=== PATIENT | female | born 2000 | race Caucasian/White ===

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

== ENCOUNTER → 2018-03-24 | Outpatient (REF) | payer OTHER, MEDICAID, BC | LOC: M SFHCCLAY 13:04 | DX: J35.1 Hypertrophy of tonsils (principal) ==

== ENCOUNTER 2018-03-27 23:05 | Emergency (ER) | payer OTHER, MEDICAID ==
[2018-03-28] MEDS: GI COCKTAIL 50ML BTL(HYOSCYAMINE/MAALOX/LIDOCAINE VISCOUS)(1:3:1) PO (00:26)
[2018-03-28] MEDS: NS 1,000 ML IV (00:26)
[2018-03-28 00:46] LABS: HEMATOCRIT 42.1 % (36.0-47.0); HEMOGLOBIN 14.3 g/dl (12.0-15.5); MEAN CORPUSCULAR VOLUME 94.2 fl (80.0-96.0); PLATELET COUNT, AUTOMATED 274 10^3/uL (150-450); RED BLOOD COUNT 4.47 10^6/uL (4.00-5.40); RED CELL DISTRIBUTION WIDTH 12.2 % (11.5-14.5); WHITE BLOOD COUNT 14.6 10^3/uL (4.0-10.0)
[2018-03-28 00:48] LABS: CONTROL LINE MONO INT CTR LINE PRESENT; MONO SCRN NEGATIVE (NEGATIVE)
[2018-03-28 00:52] LABS: ANION GAP 5 MEQ/L (8-16); BLOOD UREA NITROGEN 12 MG/DL (7-18); CALCIUM LEVEL 8.8 MG/DL (8.5-10.1); CARBON DIOXIDE LEVEL 27 MEQ/L (21-32); CHLORIDE LEVEL 108 MEQ/L (98-107); CREATININE FOR GFR 0.82 MG/DL (0.55-1.30); GLUCOSE, FASTING 106 MG/DL (70-100); POTASSIUM SERUM 3.8 MEQ/L (3.5-5.1); SODIUM LEVEL 140 MEQ/L (136-145)
[2018-03-28] MEDS: IBUPROFEN 800 MG TAB PO (01:33)
== END 2018-03-28 01:45 | disposition home or self-care (01) ==
LOC: M ED 23:05
DX: H65.193 Other acute nonsuppurative otitis media, bilateral (principal); H69.90 Unspecified Eustachian tube disorder, unspecified ear; F33.9 Major depressive disorder, recurrent, unspecified; F41.9 Anxiety disorder, unspecified; Z87.09 Personal history of other diseases of the respiratory system
CPT/HCPCS: 70360

== ENCOUNTER 2018-10-01 20:03 | Emergency (ER) | payer OTHER, MEDICAID ==
[2018-10-01 20:03] VITALS: BP 136/97
[~2018-10-01 20:03] MED LIST changes: +ACET-683 PO; +KEFL500C17 PO; +MEDR4PAK PO; +MOBI4TAB PO; +REGL10TA6 PO; +ZANA4TAB PO
[2018-10-01] MEDS ORDERED: NORCOTAB PO (20:25)
[2018-10-01] MEDS ORDERED: BACT800T5 PO (20:25)
[2018-10-01] MEDS: NORCO, ANEXSIA 5/325MG TABLET (HYDROcodone/ACETAMINOPHEN) PO ONE (20:26)
[2018-10-01] MEDS: BACTRIM 160MG/800MG DS TAB PO ONE (20:26)
[2018-10-01] MEDS: NORCO 5/325MG TABLET (BULK FOR ED) PO ONE (20:39)
== END 2018-10-01 20:43 | disposition home or self-care (01) ==
LOC: M ED 20:03
DX: K61.0 Anal abscess (principal); L03.315 Cellulitis of perineum

== ENCOUNTER 2019-01-04 16:36 | Emergency (ER) | payer OTHER, MEDICAID ==
[~2019-01-04 16:36] MED LIST changes: +BACT800T5 PO; +HYDR-3715 PO; +IBUP600T42 PO; -IBUP60TA PO; -NORCOTAB PO; -SENN1TAB2 PO; +SENN1TAB40 PO
--- NOTE | 2019-01-04 18:49 | REP ---
Clinical: Trauma. Technique: AP, lateral left ankle. Findings: Mild swelling. No acute fracture or dislocation identified. Ankle mortise intact. Impression: Mild swelling. No acute fracture or dislocation. Electronically Signed by Abel Altman MD 01/04/2019 06:41 P
[2019-01-04] MEDS ORDERED: QC A650T3 PO (19:29)
[2019-01-04 19:33] VITALS: BP 133/74
== END 2019-01-04 19:38 | disposition home or self-care (01) ==
LOC: M ED 16:36
DX: S93.402A Sprain of unspecified ligament of left ankle, initial encounter (principal); X50.1XXA Overexertion from prolonged static or awkward postures, initial encounter; Y92.098 Other place in other non-institutional residence as the place of occurrence of the external cause; Z32.01 Encounter for pregnancy test, result positive; F41.9 Anxiety disorder, unspecified

== ENCOUNTER 2019-02-15 15:10 | Emergency (ER) | payer MEDICAID, OTHER ==
[~2019-02-15] VITALS: Ht 172.7 cm; Wt 102.2 kg
[~2019-02-15 15:10] MED LIST changes: +QC A650T3 PO
[2019-02-15] MEDS ORDERED: UNIS25TA3 PO (15:19)
[2019-02-15] MEDS ORDERED: VITAMIN B6 (15:19)
[2019-02-15] MEDS ORDERED: METOCLOPRAMIDE INJ 10MG/2ML VIAL (J2765) IV ONE (16:30)
[2019-02-15] MEDS ORDERED: NS 1,000 ML IV ONE (16:30)
[2019-02-15 17:08] LABS: BLOOD UREA NITROGEN 8 MG/DL (7-18); CALCIUM LEVEL 9.2 MG/DL (8.5-10.1); CARBON DIOXIDE LEVEL 23 MEQ/L (21-32); CHLORIDE LEVEL 106 MEQ/L (98-107); CREATININE FOR GFR 0.68 MG/DL (0.55-1.30); GLUCOSE, FASTING 90 MG/DL (70-100); POTASSIUM SERUM 3.8 MEQ/L (3.5-5.1); SODIUM LEVEL 137 MEQ/L (136-145)
[2019-02-15] MEDS ORDERED: ONDANSETRON 4MG/2ML VIAL (J2405) IV ONE (17:30)
[2019-02-15] MEDS ORDERED: ONDA4TAB6 PO (19:01)
[2019-02-15 19:06] VITALS: BP 121/75
== END 2019-02-15 19:08 | disposition home or self-care (01) ==
LOC: M ED 15:10
DX: O26.891 Other specified pregnancy related conditions, first trimester (principal); O21.9 Vomiting of pregnancy, unspecified; Z79.899 Other long term (current) drug therapy
CPT/HCPCS: 80048; 81001; 87086; 96361; 96374; 96375; 99284; J2405; J2765

== ENCOUNTER → 2019-03-29 | Outpatient (CLI) | payer MEDICAID, SELFPAY ==
[~2019-03-29] MED LIST changes: +ONDA4TAB6 PO; +UNIS25TA3 PO; +VITAMIN B6
[2019-03-29 12:16] LABS: BASO % 0.2 % (0.0-1.0); EOS # 0.1 10^3/uL (0.0-0.50); EOS % 0.6 % (0.0-3.0); HEMATOCRIT 37.6 % (36.0-47.0); HEMOGLOBIN 12.9 g/dl (12.0-15.5); LYMPH # 1.3 10^3/uL (1.5-6.5); LYMPH % 15.1 % (24.0-44.0); MEAN CORPUSCULAR HEMOGLOBIN 31.6 pg (27.0-33.0); MEAN CORPUSCULAR HGB CONC 34.3 g/dl (32.0-36.5); MEAN CORPUSCULAR VOLUME 92.2 fl (80.0-96.0); MONO # 0.6 10^3/uL (0.0-0.8); MONO % 6.6 % (0.0-5.0); NEUTROPHILS # 6.7 10^3/uL (1.8-7.7); PLATELET COUNT, AUTOMATED 219 10^3/uL (150-450); RED BLOOD COUNT 4.08 10^6/uL (4.00-5.40); WHITE BLOOD COUNT 8.7 10^3/uL (4.0-10.0)
[2019-03-29 12:46] LABS: ALT/SGPT 11 U/L (12-78); BILIRUBIN,TOTAL 0.1 MG/DL (0.2-1.0); CREATININE FOR GFR 0.45 MG/DL (0.55-1.30); GLUCOSE CHALLENGE TEST 1 HOUR 75 MG/DL (LESS THAN 140); LDH LACTATE DEHYDROGENASE 139 U/L (84-246); URIC ACID 3.9 MG/DL (2.6-6.0)
[2019-03-29 12:51] LABS: TOTAL PROTEIN,RANDOM URINE 19.4 MG/DL (0.0-12.0)
[2019-03-29 13:15] LABS: HEMOGLOBIN A1c 4.6 %
[2019-03-29 13:52] LABS: CHLAMYDIA DNA AMPLIFICATION NEGATIVE (NEGATIVE); GC DNA AMPLIFICATION NEGATIVE (NEGATIVE)
[2019-03-30 10:14] LABS: RUBELLA IgG QUALITATIVE IMMUNE (IMMUNE)
[2019-03-30 10:43] LABS: HEPATITIS C VIRUS ABY INDEX < 0.0 INDEX (<0.8); HIV 1&2 SCREEN CENTAUR NEGATIVE (NEGATIVE)
== END ==
LOC: M LAB 10:15
PROVIDERS: ATTEND Advanced Practice Midwife
DX: Z34.81 Encounter for supervision of other normal pregnancy, first trimester (principal); Z3A.00 Weeks of gestation of pregnancy not specified

== ENCOUNTER → 2019-04-13 | Outpatient (CLI) | payer MEDICAID ==
--- NOTE | 2019-04-13 14:26 | REP ---
Clinical: Anatomical evaluation. Comparison: None . Findings: Examination demonstrates a single live intrauterine in cephalic presentation. motion is identified by technologist. Placenta is noted posterior and low-lying and grade zero without evidence for placenta previa or abruption. Amniotic fluid volume is normal. Cervix measures 3.7 cm in length and appears closed. No evidence for nuchal cord. Gestational age by LMP 18 weeks 1 day with ELLYN 09/13/2019 . Gestational age by current measurements 19 weeks 2 days with ELLYN 09/05/2019 . FHR equals 136 beats per minute. BPD 4.5 cm 19 weeks 5 days HC 16.0 cm 18 weeks 6 days AC 14.3 cm 19 weeks 5 days FL 2.9 cm 18 weeks 5 days HL 2.9 cm 19 weeks 2 days HC/AC ratio 1.12 Estimated weight 280 grams ( 93rd percentile). Anatomical assessment demonstrates normal structures including cranium, choroid plexus, cavum, cerebellum/posterior fossa, facial features, diaphragm, stomach, cord insertion/three-vessel cord, kidneys/bladder, spine, and extremities. Limited evaluation of the lungs and heart/ventricular outflow tracts noted. Impression: 1. Single live intrauterine in cephalic presentation demonstrating appropriate interval growth. 2. Anatomical limitations as noted above may warrant reevaluation and follow-up. Electronically Signed by Abel Altman MD 04/13/2019 02:19 P
== END ==
LOC: M RAD 12:57
PROVIDERS: ATTEND Advanced Practice Midwife
DX: Z34.82 Encounter for supervision of other normal pregnancy, second trimester (principal); Z36.89 Encounter for other specified antenatal screening; Z3A.18 18 weeks gestation of pregnancy

== ENCOUNTER → 2019-05-17 | Outpatient (CLI) | payer MEDICAID ==
[~2019-05-17] MED LIST changes: +SENN-53 PO; -SENN1TAB40 PO
--- NOTE | 2019-05-17 19:03 | REP ---
Obstetric ultrasound for anatomy follow-up: On the prior study of 04/13/2019 the lungs, four-chamber view of the heart and right and left cardiac ventricular outflow tracts could not be optimally demonstrated. The study dated fundus for follow-up of these anatomic structures. On the study today the lungs, four-chamber view of the heart and the cardiac right and left ventricular outflow tracts are satisfactorily demonstrated and are unremarkable. The remainder of the anatomy is unremarkable as previously. There is a single intrauterine gestation in a vertex presentation. There is movement and cardiac activity. The heart rate is 142 beats per minute. The placenta is posterior and is grade zero. The amniotic fluid volume subjectively is normal. The cervix measures through 0.8 cm length. Gestational age by today's ultrasound is 23 weeks 2 days/ELLYN 09/11/2019. Gestational age by the first ultrasound is 24 weeks 1 day/ELLYN 09/05/2019. Gestational age by LMP is 21 weeks 0 days/ELLYN 09/13/2019. The weight is 556 grams/1 pound. This is the 46th percentile for 23 weeks 0 days. Electronically Signed by Manish Reyes MD 05/17/2019 06:54 P
== END ==
LOC: M RAD 16:55
PROVIDERS: ATTEND Advanced Practice Midwife
DX: O99.212 Obesity complicating pregnancy, second trimester (principal); E66.9 Obesity, unspecified; Z3A.23 23 weeks gestation of pregnancy

== ENCOUNTER → 2019-06-27 | Outpatient (CLI) | payer OTHER ==
[~2019-06-27] MED LIST changes: +PRENTAB29
[2019-06-27 13:28] LABS: HEMATOCRIT 40.2 % (36.0-47.0); HEMOGLOBIN 13.2 g/dl (12.0-15.5); MEAN CORPUSCULAR HEMOGLOBIN 31.1 pg (27.0-33.0); MEAN CORPUSCULAR HGB CONC 32.8 g/dl (32.0-36.5); MEAN CORPUSCULAR VOLUME 94.8 fl (80.0-96.0); PLATELET COUNT, AUTOMATED 218 10^3/uL (150-450); RED BLOOD COUNT 4.24 10^6/uL (4.00-5.40); WHITE BLOOD COUNT 8.8 10^3/uL (4.0-10.0)
== END ==
LOC: M LAB 11:50
PROVIDERS: ATTEND Advanced Practice Midwife
DX: O99.212 Obesity complicating pregnancy, second trimester (principal); Z3A.00 Weeks of gestation of pregnancy not specified

== ENCOUNTER → 2019-06-29 | Outpatient (REF) | payer OTHER ==
[2019-06-29 21:42] LABS: APPEARANCE, URINE HAZY (CLEAR); BACTERIA, URINE AUTO NEGATIVE (NEGATIVE); BILIRUBIN, URINE AUTO NEGATIVE (NEGATIVE); BLOOD, URINE BLOOD NEGATIVE (NEGATIVE); CALCIUM OXALATE CRYSTALS LARGE; COLOR, URINE YELLOW (YELLOW); GLUCOSE, URINE (UA) AUTO NEGATIVE (NEGATIVE); KETONE, URINE AUTO NEGATIVE (NEGATIVE); LEUKOCYTE ESTERASE, URINE AUTO TRACE (NEGATIVE); MUCUS, URINE SMALL (NEGATIVE); NITRITE, URINE AUTO NEGATIVE (NEGATIVE); PROTEIN, URINE AUTO NEGATIVE (NEGATIVE); RBC, URINE AUTO 2 /HPF (0-3); SPECIFIC GRAVITY URINE AUTO 1.018 (1.002-1.035); SQUAMOUS EPITHELIAL CELL UR AU 5 /HPF (0-6); UROBILINOGEN, URINE AUTO 0.2 mg/dL (0.0-2.0); WBC, URINE AUTO 13 /HPF (0-3)
== END ==
LOC: M LAB REF 10:20
PROVIDERS: ATTEND Physician Assistant
DX: N39.0 Urinary tract infection, site not specified (principal)

== ENCOUNTER 2019-07-17 12:13 | Outpatient (CLI) | payer OTHER ==
[~2019-07-17] VITALS: Ht 170.2 cm; Wt 115.6 kg
[2019-07-17 12:41] VITALS: BP 124/79
[2019-07-17 13:58] VITALS: BP 134/72
--- NOTE | 2019-07-17 15:07 | REP ---
OBSTETRIC SONOGRAPHY: HISTORY: Evaluate low-lying placenta. Comparison study May 17 2019. This demonstrated low-lying posterior placenta terminating 8 mm from the internal cervical os. TODAY'S SONOGRAPHIC FINDINGS: Scanning again demonstrates a living single intrauterine gestation in a cephalic lie. motion is observed and heart rate is recorded at 150 beats per minute. A posterior grade 2-3 placenta is seen. On transvaginal imaging, the inferior placental tip is 2.8 cm from the internal cervical os. Closed cervical length measurement is 3.4 cm. No extrauterine abnormality is observed. There has been appropriate interval growth. No anomalies seen. The following anatomic structures are again identified and felt to be unremarkable: cranium, cavum, face and profile, lungs, four-chamber heart with left and right ventricular outflow tract views, diaphragm, left-sided stomach, three-vessel cord, kidneys and bladder. Biometry Chart: BPD 8.4 cm = 33 weeks 5 days HC 29.7 cm = 32 weeks 6 days AC 27.4 cm = 31 weeks 3 days FL 6.4 cm = 32 weeks 6 days HL 5.4 cm = 31 weeks, 3 days HC/AC ratio normal 1.09 Cephalic index normal 0.80 Estimated weight 1928 grams, 4 pounds 4 ounces, 54th percentile for 31 weeks 5 days. JOHN normal 14.5 cm. S/D ratio normal 2.65. IMPRESSION: Viable single intrauterine gestation at 32 weeks 3 days by today's composite sonographic criteria. Expected gestational age estimate based on prior sonography is 32 weeks 6 days. ELLYN by prior sonography September 05, 2019. A posterior placenta terminates 2.8 cm from the internal cervical os on transvaginal sonography today. Electronically Signed by Zach Colunga MD 07/17/2019 05:19 P
--- NOTE | 2019-07-19 07:32 | IPNPDOC ---
Obstetrical Progress Note Date of Service Jul 17, 2019 Subjective S:18yo at 31w5d present with vaginal spotting. She has a know low lying placenta. Reports active movement. No reg ctx or LOF. O: vss, AF cat 1 tracing, no ctx gen: well appearing abd: gravid, nttp TVUS: showing placenta 2.8cm from cervix A/P: 18yo with resolution of low-lying placenta reassuring status -home with PTL precautions and FKCs -f/u at OB Objective Vital Signs Date Time Temp Pulse Resp B/P (MAP) Pulse Ox O2 Delivery O2 Flow Rate FiO2 07/17/19 13:58 89 18 134/72 (92) 07/17/19 12:41 97.7 Assessment Heart Rate (FHR): 150 Variability: Moderate Accelerations: Positive Heart Rate Tracing: Category I Tocometer Contractions: No Sterile Vaginal Examination Postion/Presentation: Cephalic presentation Assessment and Plan Age: 18 : 2 Term: 1 Livin EGA at Admission: 31 Status: Reassuring Group B Streptococcus: Unknown DANIELITO KEARNS MD. Jul 19, 2019 07:32
== END 2019-07-17 15:05 | disposition home or self-care (01) ==
LOC: M LDO 12:13
PROVIDERS: ATTEND Obstetrics & Gynecology
DX: O26.853 Spotting complicating pregnancy, third trimester (principal); O44.43 Low lying placenta NOS or without hemorrhage, third trimester; Z3A.31 31 weeks gestation of pregnancy

== ENCOUNTER → 2019-08-15 | Outpatient (REF) | payer OTHER | LOC: M SFHCWAGY 17:30 | PROVIDERS: ATTEND Specialist | DX: Z34.83 Encounter for supervision of other normal pregnancy, third trimester (principal) ==

== ENCOUNTER 2019-09-04 23:24 | Inpatient (IN) | payer OTHER ==
[~2019-09-04] VITALS: Ht 170.2 cm; Wt 124.5 kg
[2019-09-05] VITALS (26 sets, daily range): BP systolic 109–142; BP diastolic 59–108
[2019-09-05] MEDS ORDERED: LACTATED RINGER'S 1000 ML IV STA (00:15)
[2019-09-05] MEDS ORDERED: PENICILLIN G POTASSIUM IV 5 MU in D5W MINI-BAG PLUS 100 ML IV STA (00:15)
[2019-09-05] MEDS ORDERED: LR 1,000 ML IV SCH ×2 (01:00→04:00)
[2019-09-05 01:01] LABS: HEMATOCRIT 41.7 % (36.0-47.0); HEMOGLOBIN 13.8 g/dl (12.0-15.5); MEAN CORPUSCULAR HEMOGLOBIN 30.6 pg (27.0-33.0); MEAN CORPUSCULAR HGB CONC 33.1 g/dl (32.0-36.5); MEAN CORPUSCULAR VOLUME 92.5 fl (80.0-96.0); PLATELET COUNT, AUTOMATED 231 10^3/uL (150-450); RED BLOOD COUNT 4.51 10^6/uL (4.00-5.40); WHITE BLOOD COUNT 12.9 10^3/uL (4.0-10.0)
[2019-09-05 01:31] LABS: TOTAL PROTEIN,RANDOM URINE 18.5 MG/DL (0.0-12.0)
[2019-09-05 01:32] LABS: ALT/SGPT 14 U/L (12-78); BILIRUBIN,TOTAL 0.2 MG/DL (0.2-1.0); CREATININE FOR GFR 0.65 MG/DL (0.55-1.30); GLOMERULAR FILTRATION RATE > 60.0 (>60); LDH LACTATE DEHYDROGENASE 181 U/L (84-246); URIC ACID 5.9 MG/DL (2.6-6.0)
[2019-09-05] MEDS ORDERED: FENTANYL 2MCG/ML ROPIVACAINE 0.2% IN 0.9% NACL 100ML IVBAG As Ordered ONE (01:35)
[2019-09-05] MEDS ORDERED: EPIDURAL/PCA KEYS XX PRN (01:45)
[2019-09-05] MEDS ORDERED: diphenhydrAMINE INJ 50MG/ML VIAL (J1200) IV PRN (01:45)
[2019-09-05] MEDS ORDERED: NALOXONE INJ 0.4 MG/1 ML VIAL (J2310) IV PRN (01:45)
[2019-09-05] MEDS ORDERED: LACTATED RINGER'S 1000 ML IV PRN (01:45)
[2019-09-05] MEDS ORDERED: ONDANSETRON 4MG/2ML VIAL (J2405) IV PRN ×2 (01:45→03:30)
[2019-09-05] MEDS ORDERED: EPIDURAL COMMENT XX SCH (01:45)
[2019-09-05] MEDS ORDERED: FENTANYL/ROPIVACAINE/NACL BAG 100 ML EPIDURAL SCH (01:45)
[2019-09-05] MEDS ORDERED: REFRIGERATOR IV KEYS XX PRN (01:45)
[2019-09-05] MEDS ORDERED: ePHEDrine SULFATE 25 MG/5 ML(5MG/ML) SYRINGE IV PRN (01:45)
[2019-09-05] MEDS ORDERED: OXYTOCIN 30 UNITS IN 0.9% NaCl 500ML IV BAG (J2590) As Ordered ONE (03:00)
[2019-09-05] MEDS ORDERED: ACETAMINOPHEN 500 MG TAB PO PRN (03:30)
[2019-09-05] MEDS ORDERED: PROMETHAZINE 25 MG TAB PO PRN (03:30)
[2019-09-05] MEDS ORDERED: IBUPROFEN 800 MG TAB PO PRN (03:30)
[2019-09-05] MEDS ORDERED: DIBUCAINE 1% OINTMENT 30GM TOP PRN (03:30)
[2019-09-05] MEDS ORDERED: DOCUSATE SODIUM 100 MG CAP PO PRN (03:30)
[2019-09-05] MEDS ORDERED: IBUPROFEN 600 MG TAB PO PRN (03:30)
[2019-09-05] MEDS ORDERED: ACETAMINOPHEN TAB 650MG DOSE (2X325MG) PO PRN (03:30)
[2019-09-05] MEDS ORDERED: MEASLES,MUMPS,RUBELLA VACCINE INJ (MMR-II) (90707) SC SCH (04:00)
[2019-09-05] MEDS ORDERED: RHOGAM 300 MCG (1500 IU) INJ (J2790) IM SCH (04:00)
[2019-09-05] MEDS ORDERED: OXYTOCIN DRIP 30 UNITS in IV 1 EA IV SCH (04:00)
[2019-09-05] MEDS ORDERED: PENICILLIN G POTASSIUM IV 2.5 MU in IV 1 EA IV SCH (05:00)
[2019-09-05] MEDS: SLF 3 ML SYR IV SCH ×2 (09:15→22:15)
[2019-09-05] MEDS: PRENATAL VITAMINS CHEWABLE TABLET PO SCH (09:42)
[2019-09-05] MEDS ORDERED: SLF 3 ML SYR IV PRN (10:00)
[2019-09-06 06:00] VITALS: BP 117/62
[2019-09-06] MEDS: SLF 3 ML SYR IV SCH ×3 (06:00→22:00)
[2019-09-06] MEDS: PRENATAL VITAMINS CHEWABLE TABLET PO SCH (09:12)
[2019-09-06 18:00] VITALS: BP 124/79
[2019-09-07 05:35] VITALS: BP 126/63
[2019-09-07] MEDS: SLF 3 ML SYR IV SCH (06:00)
[2019-09-07] MEDS ORDERED: IBUP-1022 PO (08:38)
[2019-09-07] MEDS ORDERED: ACET-683 PO (08:38)
== END 2019-09-07 12:10 | disposition home or self-care (01) | DRG 560 ==
LOC: M LDO 23:24 → M LDI 09-05 00:13 → M OBS 09-05 09:28
PROVIDERS: ADMIT Obstetrics & Gynecology; ATTEND Obstetrics & Gynecology
PROC: 10E0XZZ Delivery of Products of Conception, External Approach (ICD-10-PCS; principal; 2019-09-05)
DX: O99.824 Streptococcus B carrier state complicating childbirth (principal); Z3A.38 38 weeks gestation of pregnancy; Z37.0 Single live birth; O99.214 Obesity complicating childbirth; E66.9 Obesity, unspecified

== ENCOUNTER → 2020-05-27 | Outpatient (CLI) | payer OTHER ==
[~2020-05-27] MED LIST changes: +IBUP-1022 PO
--- NOTE | 2020-05-27 16:58 | REPVR ---
PROCEDURE INFORMATION: Exam: XR Right Wrist Exam date and time: 05/27/2020 4:35 PM Age: 19 years old Clinical indication: Pain; Wrist; Right; Additional info: S/P fall, R/O wrist FX, thumb FX TECHNIQUE: Imaging protocol: XR Right wrist. Views: 1 or 2 views. COMPARISON: No relevant prior studies available. FINDINGS: Bones/joints: Normal. Soft tissues: Normal. IMPRESSION: No acute findings. Electronically signed by: Jay Hou On 05/27/2020 16:58:20 PM
--- NOTE | 2020-05-27 16:59 | REPVR ---
PROCEDURE INFORMATION: Exam: XR Right Finger(s) Exam date and time: 05/27/2020 4:35 PM Age: 19 years old Clinical indication: Pain; Finger(s); Right; Additional info: S/P fall, R/O wrist FX, thumb FX TECHNIQUE: Imaging protocol: XR Right fingers. Views: Minimum 2 views. COMPARISON: No relevant prior studies available. FINDINGS: Bones/joints: Normal. Soft tissues: Normal. IMPRESSION: No acute findings. Electronically signed by: Jay Hou On 05/27/2020 16:59:37 PM
== END ==
LOC: M RAD 15:52
PROVIDERS: ATTEND Physician Assistant Medical
DX: S60.211A Contusion of right wrist, initial encounter (principal); S60.011A Contusion of right thumb without damage to nail, initial encounter; X58.XXXA Exposure to other specified factors, initial encounter; Y92.9 Unspecified place or not applicable

== ENCOUNTER → 2022-06-20 | Outpatient (REF) | payer OTHER | LOC: M LAB REF 21:19 | PROVIDERS: ATTEND Physician Assistant Medical | DX: J20.9 Acute bronchitis, unspecified (principal) ==

== ENCOUNTER 2022-08-04 12:09 | Emergency (ER) | payer OTHER ==
[~2022-08-04] VITALS: Ht 172.7 cm; Wt 109.1 kg
[2022-08-04 14:29] LABS: BASO % 0.2 % (0.0-1.0); EOS % 0.1 % (0.0-3.0); HEMATOCRIT 49.8 % (36.0-47.0); HEMOGLOBIN 16.9 g/dl (12.0-15.5); LYMPH # 0.8 10^3/uL (1.5-5.0); LYMPH % 4.7 % (24.0-44.0); MEAN CORPUSCULAR HGB CONC 33.9 g/dl (32.0-36.5); MEAN CORPUSCULAR VOLUME 91.4 fl (80.0-96.0); MONO # 0.9 10^3/uL (0.0-0.8); MONO % 5.2 % (2.0-8.0); NEUTROPHILS # 15.4 10^3/uL (1.5-8.5); NEUTROPHILS % 89.5 % (36.0-66.0); PLATELET COUNT, AUTOMATED 369 10^3/uL (150-450); RED BLOOD COUNT 5.45 10^6/uL (4.00-5.40); WHITE BLOOD COUNT 17.2 10^3/uL (4.0-10.0)
[2022-08-04] MEDS ORDERED: MORPHINE 4 MG/ML 1ML VIAL IV ONE (14:35)
[2022-08-04] MEDS ORDERED: ONDANSETRON 4MG 2ML VIAL IV ONE (14:35)
[2022-08-04 14:50] LABS: LIPASE 23 U/L (12-53)
[2022-08-04 14:51] LABS: BILIRUBIN,DIRECT 0.2 MG/DL (<0.4)
[2022-08-04 14:52] LABS: ALBUMIN 4.2 G/DL (3.2-5.2); ALKALINE PHOSPHATASE 94 U/L (46-116); ALT/SGPT 21 U/L (7.0-40); AST/SGOT 26 U/L (<34); BILIRUBIN,TOTAL 0.8 MG/DL (0.3-1.2); BLOOD UREA NITROGEN 23 MG/DL (9-23); CARBON DIOXIDE LEVEL 19 MMOL/L (20-31); CHLORIDE LEVEL 103 MMOL/L (98-107); CREATININE FOR GFR 1.07 MG/DL (0.55-1.30); GLOMERULAR FILTRATION RATE > 60.0 (>60); GLUCOSE, FASTING 104 MG/DL (60-100); POTASSIUM SERUM 4.4 MMOL/L (3.5-5.1); SODIUM LEVEL 136 MMOL/L (136-145); TOTAL PROTEIN 7.9 G/DL (5.7-8.2)
[2022-08-04] MEDS ORDERED: ISOVUE-370 76% 100ML VIAL As Ordered ONE (15:05)
[2022-08-04] MEDS ORDERED: NS 1,000 ML IV ONE (15:55)
[2022-08-04 17:01] VITALS: BP 121/72
[2022-08-04] MEDS ORDERED: ACETAMINOPHEN 500 MG TAB PO ONE (18:20)
[2022-08-04] MEDS ORDERED: CIPROFLOXACIN 500MG TABLET PO ONE (18:40)
[2022-08-04] MEDS ORDERED: CIPR-249 PO (18:54)
[2022-08-04] MEDS ORDERED: KETO10TAB PO (18:54)
== END 2022-08-04 19:07 | disposition home or self-care (01) ==
LOC: EDBD 12:09 → M ED 12:09
DX: N39.0 Urinary tract infection, site not specified (principal); N83.201 Unspecified ovarian cyst, right side; R11.2 Nausea with vomiting, unspecified; R19.7 Diarrhea, unspecified; I10 Essential (primary) hypertension; F32.A Depression, unspecified; F41.9 Anxiety disorder, unspecified; F17.210 Nicotine dependence, cigarettes, uncomplicated; E66.9 Obesity, unspecified; Z79.899 Other long term (current) drug therapy
CPT/HCPCS: 74177; 76830; 76856; 80048; 80076; 81000; 83690; 84702; 85025; 87086; 93976; 96361; 96374; 96375; 99284; J2270; J2405

== ENCOUNTER → 2022-08-23 | Outpatient (REF) | payer OTHER ==
[~2022-08-23] MED LIST changes: +CIPR-249 PO; +KETO10TAB PO
[2022-08-23 14:28] LABS: GC DNA AMPLIFICATION NEGATIVE (NEGATIVE)
== END ==
LOC: M PLALAB 08:12
PROVIDERS: ATTEND Obstetrics & Gynecology
DX: Z12.4 Encounter for screening for malignant neoplasm of cervix (principal); R10.2 Pelvic and perineal pain; R87.612 Low grade squamous intraepithelial lesion on cytologic smear of cervix (LGSIL)

== ENCOUNTER → 2022-10-08 | Outpatient (CLI) | payer OTHER ==
[~2022-10-08] MED LIST changes: +OXYC1TAB23 PO
== END ==
LOC: M LABSMTC 10:10
PROVIDERS: ATTEND Anesthesiology
DX: Z01.812 Encounter for preprocedural laboratory examination (principal)

== ENCOUNTER 2022-10-13 13:53 | Observation (INO) | payer OTHER ==
[2022-10-13] VITALS (8 sets, daily range): BP systolic 102–125; BP diastolic 54–74
[~2022-10-13] VITALS: Ht 172.7 cm; Wt 117.0 kg
[~2022-10-13 13:53] MED LIST changes: +BUPIVACAINE HCL 0.25% 10ML VIAL As Ordered ONE; +LR 1,000 ML IV SCH; -OXYC1TAB23 PO; +ceFAZolin SOD 2 GM in IV 1 EA IV ONE
[2022-10-13] MEDS ORDERED: LR 1,000 ML IV SCH ×2 (14:15→17:20)
[2022-10-13 14:27] LABS: HEMATOCRIT 44.4 % (36.0-47.0); MEAN CORPUSCULAR HEMOGLOBIN 31.6 pg (27.0-33.0); MEAN CORPUSCULAR HGB CONC 33.8 g/dl (32.0-36.5); MEAN CORPUSCULAR VOLUME 93.5 fl (80.0-96.0); PLATELET COUNT, AUTOMATED 265 10^3/uL (150-450); RED BLOOD COUNT 4.75 10^6/uL (4.00-5.40); WHITE BLOOD COUNT 8.9 10^3/uL (4.0-10.0)
[2022-10-13] MEDS ORDERED: METHYLENE BLUE 0.5% (5MG/ML) 10 ML AMP (PROVAYBLUE) As Ordered ONE (15:16)
[2022-10-13] MEDS ORDERED: fentaNYL 100 MCG/2 ML INJECTION As Ordered ONE ×2 (15:25→17:28)
[2022-10-13] MEDS ORDERED: KETOROLAC 60MG 2ML VIAL As Ordered ONE (15:25)
[2022-10-13] MEDS ORDERED: LIDOCAINE 2% 100MG/5ML SDV (FOR ANES.) As Ordered ONE (15:25)
[2022-10-13] MEDS ORDERED: HYDROmorphone HCL 2MG/ML 1ML VIAL As Ordered ONE (15:25)
[2022-10-13] MEDS ORDERED: MIDAZOLAM INJ 2MG/2ML VIAL As Ordered ONE (15:25)
[2022-10-13] MEDS ORDERED: ROCURONIUM BROMIDE 50MG/5ML VIAL As Ordered ONE (15:25)
[2022-10-13] MEDS ORDERED: ONDANSETRON 4MG 2ML VIAL As Ordered ONE (15:25)
[2022-10-13] MEDS ORDERED: propofoL 200 MG/20 ML VIAL As Ordered ONE (15:25)
[2022-10-13] MEDS ORDERED: ACETAMINOPHEN 1000MG 100ML IV BAG As Ordered ONE (15:26)
[2022-10-13] MEDS ORDERED: SUGAMMADEX SODIUM 500 MG/5 ML VIAL (BRIDION) As Ordered ONE (16:10)
[2022-10-13] MEDS ORDERED: ONDANSETRON 4MG 2ML VIAL IV PRN (17:20)
[2022-10-13] MEDS ORDERED: IBUP-1022 PO (17:22)
[2022-10-13] MEDS ORDERED: OXYC1TAB23 PO (17:23)
[2022-10-13] MEDS: fentaNYL 100 MCG/2 ML INJECTION IV PRN ×4 (17:30→17:46)
[2022-10-13] MEDS: oxyCODONE 5MG TAB PO PRN ×2 (17:46→18:18)
[2022-10-13] MEDS: HYDROMORPHONE HCL 0.5 MG/ 0.5 ML SYRINGE IV PRN ×2 (18:10→18:15)
[2022-10-13] MEDS: LR 1,000 ML IV SCH ×2 (18:46→21:59)
[2022-10-13] MEDS: PERCOCET 5MG/325MG TAB PO PRN ×2 (20:06→23:59)
[2022-10-14 02:00] VITALS: BP 101/55
[2022-10-14] MEDS: KETOROLAC 30 MG/ML 1ML VIAL IV PRN ×2 (03:28→09:47)
[2022-10-14] MEDS: PERCOCET 5MG/325MG TAB PO PRN ×3 (04:10→12:07)
[2022-10-14] MEDS: LR 1,000 ML IV SCH (05:55)
[2022-10-14 06:00] VITALS: BP 115/63
[2022-10-14 10:00] VITALS: BP 110/65
== END 2022-10-14 14:00 | disposition home or self-care (01) ==
LOC: M SDC 13:53 → M MS5PR 13:54 → M OBS 18:40
PROVIDERS: ADMIT Specialist; ATTEND Specialist
DX: N92.0 Excessive and frequent menstruation with regular cycle (principal); N80.00 Endometriosis of the uterus, unspecified; N91.2 Amenorrhea, unspecified; F41.9 Anxiety disorder, unspecified; F32.A Depression, unspecified; F50.9 Eating disorder, unspecified; Z88.1 Allergy status to other antibiotic agents; F17.201 Nicotine dependence, unspecified, in remission
CPT/HCPCS: 36415; 58571; 81025; 85027; 86850; 86900; 86901; 88307; 96374; 96376; J0131; J0690; J1100; J1170; J1885; J2250; J2405; J3010; S0020; S2900

== ENCOUNTER 2022-11-10 16:20 | Emergency (ER) | payer OTHER ==
[~2022-11-10] VITALS: Ht 170.2 cm; Wt 118.9 kg
[~2022-11-10 16:20] MED LIST changes: -BUPIVACAINE HCL 0.25% 10ML VIAL As Ordered ONE; -LR 1,000 ML IV SCH; +OXYC1TAB23 PO; -ceFAZolin SOD 2 GM in IV 1 EA IV ONE
[2022-11-10] MEDS ORDERED: NS 1,000 ML IV ONE (17:00)
[2022-11-10 17:34] LABS: BASO % 0.5 % (0.0-1.0); EOS # 0.2 10^3/uL (0.0-0.5); EOS % 2.8 % (0.0-3.0); HEMATOCRIT 45.2 % (36.0-47.0); HEMOGLOBIN 15.2 g/dl (12.0-15.5); LYMPH # 2.6 10^3/uL (1.5-5.0); LYMPH % 33.9 % (24.0-44.0); MEAN CORPUSCULAR HEMOGLOBIN 31.1 pg (27.0-33.0); MEAN CORPUSCULAR HGB CONC 33.6 g/dl (32.0-36.5); MEAN CORPUSCULAR VOLUME 92.6 fl (80.0-96.0); MONO # 0.5 10^3/uL (0.0-0.8); MONO % 6.4 % (2.0-8.0); NEUTROPHILS # 4.2 10^3/uL (1.5-8.5); NEUTROPHILS % 56.1 % (36.0-66.0); PLATELET COUNT, AUTOMATED 343 10^3/uL (150-450); RED BLOOD COUNT 4.88 10^6/uL (4.00-5.40); WHITE BLOOD COUNT 7.6 10^3/uL (4.0-10.0)
[2022-11-10 17:54] LABS: LIPASE 48 U/L (12-53)
[2022-11-10 17:57] LABS: ALBUMIN 4.5 G/DL (3.2-5.2); ALKALINE PHOSPHATASE 114 U/L (46-116); ALT/SGPT 20 U/L (7.0-40); AST/SGOT 13 U/L (<34); BILIRUBIN,DIRECT < 0.1 MG/DL (<0.4); BILIRUBIN,TOTAL 0.2 MG/DL (0.3-1.2); BLOOD UREA NITROGEN 14 MG/DL (9-23); CALCIUM LEVEL 9.5 MG/DL (8.5-10.1); CARBON DIOXIDE LEVEL 26 MMOL/L (20-31); CHLORIDE LEVEL 106 MMOL/L (98-107); CREATININE FOR GFR 0.72 MG/DL (0.55-1.30); GLOMERULAR FILTRATION RATE > 60.0 (>60); GLUCOSE, FASTING 92 MG/DL (60-100); POTASSIUM SERUM 4.1 MMOL/L (3.5-5.1); SODIUM LEVEL 141 MMOL/L (136-145)
[2022-11-10] MEDS ORDERED: ONDANSETRON 4MG 2ML VIAL IV ONE (18:05)
[2022-11-10] MEDS ORDERED: MORPHINE 4 MG/ML 1ML VIAL IV ONE ×2 (18:05→19:20)
[2022-11-10] MEDS ORDERED: ISOVUE-370 76% 100ML VIAL As Ordered ONE (18:23)
[2022-11-10] MEDS ORDERED: PERC5TAB12 PO (21:28)
[2022-11-10] MEDS ORDERED: DICY10CA13 PO (21:28)
[2022-11-10] MEDS ORDERED: DICYCLOMINE 10 MG CAP PO ONE (21:35)
[2022-11-10] MEDS ORDERED: PERCOCET 5MG/325MG TAB PO ONE (21:35)
[2022-11-10] MEDS ORDERED: OXYCODONE/APAP 5MG/325MG(HOME DOSE PACK) PO ONE (21:40)
[2022-11-10 21:44] VITALS: BP 155/76
== END 2022-11-10 21:47 | disposition home or self-care (01) ==
LOC: M ED 16:20
DX: R10.2 Pelvic and perineal pain (principal); N94.89 Other specified conditions associated with female genital organs and menstrual cycle; Z90.710 Acquired absence of both cervix and uterus; I10 Essential (primary) hypertension
CPT/HCPCS: 74177; 80048; 80076; 81001; 83605; 83690; 85025; 87040; 87086; 96374; 96375; 96376; 99284; J2405; Q9967

== ENCOUNTER 2024-06-22 12:18 | Emergency (ER) | payer OTHER ==
[~2024-06-22] VITALS: Ht 172.7 cm; Wt 116.3 kg
[~2024-06-22 12:18] MED LIST changes: +DICY-61 PO; +ONDA-282 PO; -ONDA4TAB6 PO; +PERC5TAB12 PO
[2024-06-22] MEDS ORDERED: ESTR1DIS (12:31)
[2024-06-22] MEDS ORDERED: TRAM50TA2 (12:31)
[2024-06-22] MEDS ORDERED: METR-265 (12:31)
[2024-06-22] MEDS ORDERED: KETOROLAC 30 MG/ML 1ML VIAL IM ONE (15:50)
[2024-06-22] MEDS: METOCLOPRAMIDE INJ 10MG/2ML VIAL IV ONE (16:06)
[2024-06-22] MEDS: diphenhydrAMINE 50MG/ML VIAL IV ONE (16:06)
[2024-06-22] MEDS: NS (Normal Saline) 0.9% 1,000 ML IV ONE (16:06)
[2024-06-22] MEDS: KETOROLAC 30 MG/ML 1ML VIAL IV ONE (16:15)
[2024-06-22 17:13] VITALS: BP 127/70; TEMP 98.5; O2SAT 98
== END 2024-06-22 18:11 | disposition home or self-care (01) ==
LOC: M ED 12:18
DX: N90.5 Atrophy of vulva (principal); Z85.41 Personal history of malignant neoplasm of cervix uteri; Z79.890 Hormone replacement therapy; I10 Essential (primary) hypertension; F17.200 Nicotine dependence, unspecified, uncomplicated
CPT/HCPCS: 96361; 96374; 96375; 99284; J1200; J1885; J2765

== ENCOUNTER → 2024-06-25 | Outpatient (REF) | payer OTHER ==
[~2024-06-25] MED LIST changes: +ESTR1DIS; +METR-265; +TRAM50TA2
[2024-06-26 14:56] LABS: GC DNA AMPLIFICATION NEGATIVE (NEGATIVE)
== END ==
LOC: M SFHCWAGY 12:53
PROVIDERS: ATTEND Specialist
DX: Z20.2 Contact with and (suspected) exposure to infections with a predominantly sexual mode of transmission (principal)